=== PATIENT | female | born 1985 | race Hispanic/Latino ===

== ENCOUNTER 2018-02-17 01:00 | Emergency (ER) | payer MEDICAID ==
[2018-02-17] MEDS ORDERED: Sodium Chloride 0.9% 500 ML IV STA (01:34)
[2018-02-17] MEDS ORDERED: Sodium Chloride 0.9% 1,000 ML IV STA (01:50)
[2018-02-17 02:02] LABS: BASO # 0.05 K/mm3 (0.0-2.0); BASO % 0.2 % (0.0-3.0); EOS # 0.1 (0.0-0.7); EOS % 0.3 % (1.5-5.0); GRAN # 22.88 (1.4-6.5); GRAN % 87.1 % (50.0-68.0); LYMPH # 1.8 (1.2-3.4); LYMPH % 6.9 % (22.0-35.0); MEAN CELL VOLUME 92.2 fl (80.0-105.0); MEAN CORPUSCULAR HEMOGLOBIN 31.3 pg (25.0-35.0); MEAN CORPUSCULAR HGB CONC 33.9 g/dl (31.0-37.0); MEAN PLATELET VOLUME 8.4 fl (7.0-11.0); MONO # 1.5 (0.1-0.6); MONO % 5.5 % (1.0-6.0); RBC 3.2 10^6/uL (3.5-6.1); RED CELL DISTRIBUTION WIDTH 12.4 % (11.5-14.5)
[2018-02-17 02:12] LABS: ALB/GLOB RATIO 1.6 (1.1-1.8); ALT/SGPT 24 U/L (7-56); AST/SGOT 27 U/L (14-36); BLOOD UREA NITROGEN 14 mg/dL (7-21); CALCIUM 8.5 mg/dL (8.4-10.5); GFR AFRICAN-AMERICAN > 60; GFR NON-AFRICAN AMERICAN > 60
[2018-02-17 02:16] LABS: WHITE BLOOD COUNT 26.3 10^3/ul (4.5-11.0)
[2018-02-17 02:20] LABS: INR 1.13 (0.93-1.08); PARTIAL THROMBOPLASTIN TIME 24.3 Seconds (25.1-36.5); PROTHROMBIN TIME 12.9 SECONDS (9.4-12.5)
[2018-02-17] MEDS ORDERED: Potassium Chloride 20 mEq ER Tab PO ONE (02:36)
--- NOTE | 2018-02-17 02:41 | ED PDOC ---
Arrival/HPI <John Ochoa - Last Filed: 02/17/18 04:19> - History of Present Illness Time/Duration: 24 hours Symptom Course: Worsening <Georgie Romero - Last Filed: 02/17/18 05:01> - General Chief Complaint: Female Genitourinary Time Seen by Provider: 02/17/18 01:50 - History of Present Illness Narrative History of Present Illness (Text): 02/17/18 02:37 32 yo at 12.6 by LMP with no PMH presents complaining of vaginal bleeding x1 day. Patient reports she has been bleeding profusely with passage of clots for over 24 hours. She was having period-like cramps, which have resolved spontaneously. She reports that she started feeling weak, which prompted her to come to the Emergency room. She denies chest pain, shortness of breath, fever, chills, nausea, vomiting, diarrhea, constipation. She was receiving care at a clinic, taking PNV regularly, and getting routine ultrasounds. At her last ultrasound, she was told she had an empty gestational sac, and to expect an . (Georgie Romero) Past Medical History - Provider Review Nursing Documentation Reviewed: Yes - Travel History Have you recently traveled outside [place] w/in the past 3 mons?: No - Past History Past History: No Previous - Infectious Disease Hx of Infectious Diseases: None - Tetanus Immunization Tetanus Immunization: Unknown - Reproductive Currently : Yes - Past Medical History Past Medical History: No Previous - Psychiatric Hx Substance Use: No <Georgie Romero - Last Filed: 02/17/18 05:01> Family/Social History - Physician Review Nursing Documentation Reviewed: Yes Family/Social History: No Known Family HX Smoking Status: Former Smoker Hx Alcohol Use: No Hx Substance Use: No <Georgie Romero - Last Filed: 02/17/18 05:01> Allergies/Home Meds <John Ochoa - Last Filed: 02/17/18 04:19> <Georgie Romero - Last Filed: 02/17/18 05:01> Allergies/Adverse Reactions: Allergies No Known Allergies Allergy (Verified 02/17/18 01:07) Home Medications: Home Meds Medication Instructions Recorded Confirmed No Known Home Med 02/17/18 02/17/18 Review of Systems - Review of Systems Constitutional: Fatigue Eyes: Normal ENT: Normal Respiratory: Normal Cardiovascular: Normal Gastrointestinal: Normal Genitourinary Female: Vaginal Bleeding Musculoskeletal: Normal Skin: Normal Neurological: Normal Endocrine: Normal Hemo/Lymphatic: Normal Psychiatric: Normal <Georgie Romero - Last Filed: 02/17/18 05:01> Physical Exam Vital Signs Reviewed: Yes Temperature: Afebrile Blood Pressure: Normal Pulse: Regular Respiratory Rate: Normal Appearance: Positive for: Well-Appearing, Non-Toxic Pain Distress: None Mental Status: Positive for: Alert and Oriented X 3 - Systems Exam Head: Present: Atraumatic, Normocephalic Pupils: Present: PERRL Extroacular Muscles: Present: EOMI Conjunctiva: Present: Other (pale) Mouth: Present: Moist Mucous Membranes Neck: Present: Normal Range of Motion Respiratory/Chest: Present: Clear to Auscultation, Good Air Exchange Cardiovascular: Present: Regular Rate and Rhythm, Normal S1, S2 Abdomen: Present: Normal Bowel Sounds. No: Tenderness, Distention, Peritoneal Signs Upper Extremity: Present: Normal Inspection. No: Cyanosis, Edema Lower Extremity: Present: Normal Inspection. No: Edema, CALF TENDERNESS Neurological: Present: GCS=15, CN II-XII Intact Skin: Present: Warm, Dry, Pale Psychiatric: Present: Alert, Oriented x 3, Normal Insight, Normal Concentration <Georgie Romero - Last Filed: 02/17/18 05:01> Vital Signs Temp Pulse Resp BP Pulse Ox 02/17/18 02:54 90 16 107/59 L 99 02/17/18 02:08 88 16 105/62 96 02/17/18 01:30 92 H 16 101/69 98 02/17/18 01:00 97.8 F 96 H 16 92/53 L 98 Medical Decision Making <John Ochoa - Last Filed: 02/17/18 04:19> Reassessment Condition: Re-examined, Unchanged - Lab Interpretations Interpretation: Abnormal lab values <Georgie Romero - Last Filed: 02/17/18 05:01> ED Course and Treatment: Impression: Pt seen and evaluated with biomedical scientist. Aware and agree with HPI, clinical findings, plan, and management. Pt presented for vaginal bleeding for 1 day, with heavy bleeding and clots. Plan: -- Transvaginal US -- Labs -- IV fluids -- Reassess and disposition 02/17/18 03:41 Transvaginal US shows: Gestation: No intrauterine gestational sac. Uterus/cervix: Endometrium: 1.4 cm in thickness. Heterogeneous material within cervix. Ovaries: RIGHT ovary: 2.3 x 2.2 x 2.4 cm anechoic lesion. RIGHT ovary: 1.3 x 1.7 x 0.9 cm anechoic lesion. LEFT ovary: Normal. No adnexal masses. Free fluid: No significant free fluid. IMPRESSION: 1. No intrauterine gestation. DDX: Early IUP, missed , ectopic . 2. RIGHT ovarian cysts. 3. Incidental/non-acute findings are described above. 02/17/18 03:[address] Della Napoles, GROUP WORK PROGRAM DIRECTOR, who is aware and agrees with plan. Pt with continued vaginal bleeding, elevated WBC count. Will require admission to hospital for further management. Request pt be transferred to [facility] to his service. Pt to be transferred to [place] [facility]. [facility] ER attending, Dr. Saha, notified of transfer. Transfer (Adult): Based upon the information available at the time of transfer, the medical benefits reasonably expected from the provision of medical treatment at [facility] outweigh the increased risk to the patient for transfer from this facility. I have described the inherent risks and benefits of the transfer to the patient, and patient agrees to transfer. I have spoken to Dr. Della Napoles, GROUP WORK PROGRAM DIRECTOR, who has agreed to accept transfer of the patient and provide further medical treatment at the receiving facility. At the time of transfer, copies of all medical records sent which related to the emergency condition for which the individual presented. These records include observations of signs or symptoms, preliminary clinical impression, treatment provided, results of any completed test and an informed written consent to the transfer. (John Ochoa) 02/17/18 02:43 Impression: Vaginal bleeding Differential Diagnosis included but are not limited to: inevitable/incomplete , molar Plan: -- Labs, type and screen, quantitaive beta-HCG -- 2L NS bolus -- Transvaginal US -- Reassess and disposition Prior Visits: No prior visits Progress Notes: Transvaginal US shows heterogenous material in the cervix; likely incomplete Discussed with Dr. Sundar Napoles about incomplete and persistent vaginal bleeding, who recommends patient to be transferred to [facility] for continued care, as well as [facility] for uterine bleeding 02/17/18 04:26 Discussed with Emergency department staff at [facility] for transfer, patient accepted to Dr. Merlin Napoles's service. Patient stable for transfer. (HeatherGeorgie) - Lab Interpretations Lab Results: 02/17/18 01:40 02/17/18 01:40 Lab Results 02/17/18 01:40: PT 12.9 H, INR 1.13 H, APTT 24.3 L 02/17/18 01:40: Blood Type O POSITIVE, Antibody Screen Negative, BBK History Checked No verified bt 02/17/18 01:40: Beta HCG, Quant 1114.30 H 02/17/18 01:40: Sodium 136, Potassium 3.1 L, Chloride 101, Carbon Dioxide 22, Anion Gap 16, BUN 14, Creatinine 0.8, Est GFR ( Amer) > 60, Est GFR (Non- Af Amer) > 60, Random Glucose 141 H, Calcium 8.5, Total Bilirubin 0.1 L, AST 27 , ALT 24, Alkaline Phosphatase 45, Total Protein 6.4, Albumin 4.0, Globulin 2.4 , Albumin/Globulin Ratio 1.6 02/17/18 01:40: WBC 26.3 H*, RBC 3.20 L, Hgb 10.0 L, Hct 29.5 L, MCV 92.2, MCH 31.3, MCHC 33.9, RDW 12.4, Plt Count 378, MPV 8.4, Gran % 87.1 H, Lymph % (Auto ) 6.9 L, [place] % (Auto) 5.5, Eos % (Auto) 0.3 L, Baso % (Auto) 0.2, Gran # 22.88 H, Lymph # (Auto) 1.8, [place] # (Auto) 1.5 H, Eos # (Auto) 0.1, Baso # (Auto) 0.05 - RAD Interpretation Radiology Orders: 02/17/18 01:52 OB TRANSVAGINAL [US] Stat - Medication Orders Current Medication Orders: Discontinued Medications Sodium Chloride (Sodium Chloride 0.9%) 500 mls @ 999 mls/hr IV .Q31M STA Stop: 02/17/18 02:04 Last Admin: 02/17/18 03:09 Dose: 999 mls/hr eMAR Start Stop Document 02/17/18 03:09 MS (Rec: 02/17/18 03:09 [facility] Intravenous Solution Start Date 02/17/18 Start Time 02:00 End Date 02/17/18 End time 02:30 Total Infusion Time 30 Sodium Chloride (Sodium Chloride 0.9%) 1,000 mls @ 999 mls/hr IV .Q1H1M STA Stop: 02/17/18 02:50 Last Admin: 02/17/18 01:54 Dose: 999 mls/hr eMAR Start Stop Document 02/17/18 01:54 MS (Rec: 02/17/18 01:55 [facility] Intravenous Solution Start Date 02/17/18 Start Time 01:55 End Date 02/17/18 End time 02:55 Total Infusion Time 60 Methylergonovine Maleate (Methergine) 0.2 mg IM ONCE ONE Stop: 02/17/18 03:56 Last Admin: 02/17/18 04:15 Dose: 0.2 mg IM Administration Charges Document 02/17/18 04:15 JOL (Rec: 02/17/18 04:35 JOL [id number]) Injection Site MAR Injection Site Right Deltoid Charges for Administration # of IM Administrations 1 Potassium Chloride (K-Dur 20 Meq Er Tab) 40 meq PO ONCE ONE Stop: 02/17/18 02:37 Last Admin: 02/17/18 03:08 Dose: 40 meq - Scribe Statement The provider has reviewed the documentation as recorded by the Scribe <John Ochoa - Last Filed: 02/17/18 04:19> <Georgie Romero - Last Filed: 02/17/18 05:01> - Scribe Statement Ophelia Atkins Provider Scribe Attestation: All medical record entries made by the Scribe were at my direction and personally dictated by me. I have reviewed the chart and agree that the record accurately reflects my personal performance of the history, physical exam, medical decision making, and the department course for this patient. I have also personally directed, reviewed, and agree with the discharge instructions and disposition. (John Ochoa) Disposition/Present on Arrival <John Ochoa - Last Filed: 02/17/18 04:19> - Present on Arrival Any Indicators Present on Arrival: No History of DVT/PE: No History of Uncontrolled Diabetes: No Urinary Catheter: No History of Decub. Ulcer: No History Surgical Site Infection Following: None - Disposition Have Diagnosis and Disposition been Completed?: Yes Disposition Time: 05:01 Patient Plan: Transfer To (Dr. Merlin Cobb accepting physician) <Georgie Romero - Last Filed: 02/17/18 05:01> - Disposition Diagnosis: Incomplete , Leukocytosis Disposition: Transfer [facility]U Condition: STABLE Forms: [employer] (Czech)
--- NOTE | 2018-02-17 03:40 | US ---
EXAM: US First Trimester, Transabdominal US , Transvaginal CLINICAL HISTORY: 32 years old, female; Signs and symptoms; Lmp or gestational age (in weeks): 11/19/2017; Other: Heavy bleeding with clots; ; Additional info: Vaginal bleeding; Inevitable TECHNIQUE: Real-time transabdominal and transvaginal obstetrical ultrasound of the maternal pelvis and a first trimester with image documentation. Transvaginal imaging was used for better evaluation of the fetus and adnexa. COMPARISON: No relevant prior studies available. FINDINGS: Gestation: No intrauterine gestational sac. Uterus/cervix: Endometrium: 1.4 cm in thickness. Heterogeneous material within cervix. Ovaries: RIGHT ovary: 2.3 x 2.2 x 2.4 cm anechoic lesion. RIGHT ovary: 1.3 x 1.7 x 0.9 cm anechoic lesion. LEFT ovary: Normal. No adnexal masses. Free fluid: No significant free fluid. IMPRESSION: 1. No intrauterine gestation. DDX: Early IUP, missed , ectopic . 2. RIGHT ovarian cysts. 3. Incidental/non-acute findings are described above.
[2018-02-17 05:52] VITALS: BP 106/56; PULSE 108; RESP 20; TEMP 97.9; O2SAT 100
== END 2018-02-17 04:35 | disposition short-term general hospital (02) ==
LOC: ED 01:00
DX: O03.4 Incomplete spontaneous abortion without complication (principal); D72.829 Elevated white blood cell count, unspecified
CPT/HCPCS: 76817; 80053; 84702; 85025; 85610; 85730; 86850; 86900; 96360; 96372; 99284; J2210; J2405; J7040